=== PATIENT | male | born 1950 ===

== ENCOUNTER 2021-01-22 06:22 | Day surgery (SDC) | payer OTHER ==
[~2021-01-22 06:22] MED LIST: AMBIEN10 MG PO; ELIQUIS5 MG PO; LASIX20 MG PO; SIMVAST PO; TOPROL XL25 M1 PO; ZESTRIL20 MG PO
== END 2021-01-22 18:00 | disposition home or self-care (01) ==
LOC: CIR.AMB 06:22
PROVIDERS: ATTEND Orthopaedic Surgery Hand Surgery
DX: M19.141 Post-traumatic osteoarthritis, right hand (principal); Z20.822 Contact with and (suspected) exposure to COVID-19